=== PATIENT | male | born 1975 | race African-American/Black ===

== ENCOUNTER 2023-06-04 22:10 | Emergency (ER) | payer OTHER ==
[2023-06-05 00:39] LABS: SARS-CoV-2 NAA Rapid Test Not Detected (NotDetected)
[2023-06-05] MEDS ORDERED: Ketorolac Tromethamine 30 MG (1 mL) VIAL ONE (00:53)
[2023-06-05] MEDS ORDERED: Ondansetron ODT 4 MG TAB ONE (01:07)
== END 2023-06-05 01:18 | disposition home or self-care (01) ==
LOC: CSHERS 22:10
DX: B34.9 Viral infection, unspecified (principal); E11.9 Type 2 diabetes mellitus without complications; I10 Essential (primary) hypertension; I25.2 Old myocardial infarction; Z87.891 Personal history of nicotine dependence; Z79.899 Other long term (current) drug therapy; Z79.84 Long term (current) use of oral hypoglycemic drugs
CPT/HCPCS: 96372; 99284; J1885; Q0162

== ENCOUNTER 2025-02-26 18:27 | Emergency (ER) | payer BC, SELFPAY ==
[2025-02-26] MEDS ORDERED: Ondansetron PF 4 MG/2 ML Vial ONE (19:20)
[2025-02-26] MEDS ORDERED: Famotidine/PF 20 mg/2ml Vial ONE (19:20)
[2025-02-26 20:13] LABS: ALT (SGPT) 23 U/L (Less than 45); AST (SGOT) 20 U/L (11-34); Albumin 4.4 g/dL (3.1-4.5); Alkaline Phosphatase 79 U/L (40-110); Anion Gap 14 mmol/L (10-20); BUN (Urea Nitrogen) 10 mg/dL (8.9-20.6); Bilirubin, Total 0.3 mg/dL (0.3-1.2); Calc. Creatinine Clearance 0 mL/min (70-130); Calcium 9.8 mg/dL (7.8-10.44); Carbon Dioxide 25 mmol/L (22-29); Chloride 102 mmol/L (98-107); Globulin 3.7 g/dL (2.4-3.5); Glucose 79 mg/dL (70-105); Lipase 45 U/L (8-78); Potassium 3.4 mmol/L (3.5-5.1); Sodium 138 mmol/L (136-145)
[2025-02-26 20:16] LABS: Hematocrit 41.5 % (38.8-50.0); Hemoglobin 13.4 g/dL (13.5-17.5); Mean Corpuscular Hemoglobin 23.9 pg (27.0-33.0); Mean Corpuscular Volume 74.0 fL (81.2-95.1); Platelet Count 261 10x3/uL (150-450); Red Blood Cell (RBC) Count 5.61 10x6/uL (4.32-5.72); White Blood Cell (WBC) Count 8.13 10x3/uL (3.5-10.5)
[2025-02-26 20:27] LABS: Glucose, Urine (Dipstick) Normal (Negative); Leukocyte Negative (Negative); Protein, Urine (Dipstick) 15 mg/dl (Neg-Trace); Specific Gravity, Urine 1.010 (1.005-1.030)
[2025-02-26 20:39] LABS: #Basophils 0.10 10x3/uL (0.0-0.2); #Eosinophils 0.14 10x3/uL (0.0-0.5); #Monocytes 0.98 10x3/uL (0.0-1.1); #Neutrophils 4.01 10x3/uL (1.5-8.4); %Basophils 1.2 % (0.0-2.0); %Eosinophils 1.7 % (0.0-6.0); %Lymphocytes 35.5 % (18.0-47.0); %Monocytes 12.1 % (0.0-10.0); %Neutrophils 49.4 % (40.0-75.0); MDiff Complete? YES; Microcytosis SLIGHT = 6-15 cells (100X) (0-5/hpf); Ovalocytes SLIGHT = 2-5 cells (100X) (0-1/hpf); Platelet Adequacy Comment Appears Adequate
[2025-02-26] MEDS ORDERED: Ketorolac Tromethamine 30 MG (1 mL) VIAL ONE (20:42)
[2025-02-26 20:45] LABS: CAUTI Indications for Culture Pelvic or flank pain; RBC/HPF 0-3 HPF (0-3); WBC/HPF 0-3 HPF (0-3)
[2025-02-26 20:46] LABS: Bacteria/HPF None Seen HPF (None Seen); Urine Culture Reflex No No
== END 2025-02-26 21:17 | disposition home or self-care (01) ==
LOC: CSHERS 18:27
DX: R10.32 Left lower quadrant pain (principal); N40.0 Benign prostatic hyperplasia without lower urinary tract symptoms; E87.6 Hypokalemia; E11.9 Type 2 diabetes mellitus without complications; I10 Essential (primary) hypertension; I25.2 Old myocardial infarction; Z87.891 Personal history of nicotine dependence
CPT/HCPCS: 74177; 80053; 81001; 83605; 83690; 85025; 96374; 96375; J1308; J1885; J2270; J2405